=== PATIENT | female | born 2005 | race Caucasian/White ===

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

== ENCOUNTER 2025-01-01 22:06 | Emergency (ER) | payer OTHER ==
[~2025-01-01] VITALS: Ht 157.4 cm; Wt 55.3 kg
[2025-01-01] MEDS ORDERED: ACETAMINOPHEN 325 MG TAB PO ONE (22:25)
[2025-01-01] MEDS ORDERED: CEPHALEXIN 500 MG CAP PO ONE (22:25)
[2025-01-01] MEDS ORDERED: CEPHALEXIN500 M1 PO (22:33)
[2025-01-01] MEDS ORDERED: VIBRAMYCIN100 MG PO (22:33)
== END 2025-01-01 22:37 | disposition home or self-care (01) ==
LOC: ED 22:06
DX: L03.115 Cellulitis of right lower limb (principal); Z88.0 Allergy status to penicillin; Z88.1 Allergy status to other antibiotic agents